=== PATIENT | female | born 1985 | race Hispanic/Latino ===

== ENCOUNTER 2017-06-10 09:43 | Emergency (ER) | payer MEDICAID | END 2017-06-10 11:12 | disposition home or self-care (01) | LOC: EDH 09:43 | DX: O26.892 Other specified pregnancy related conditions, second trimester (principal); M79.661 Pain in right lower leg; Z79.899 Other long term (current) drug therapy; Z3A.22 22 weeks gestation of pregnancy | CPT/HCPCS: 93971 ==